=== PATIENT | male | born 1970 | race Caucasian/White ===

== ENCOUNTER 2016-03-17 17:42 | Emergency (ER) | payer OTHER ==
[2016-03-17 17:54] VITALS: BP 132/88; PULSE 74; RESP 18; TEMP 98; O2SAT 96
--- NOTE | 2016-03-17 18:14 | UCPHY ---
H & P Time Seen by Provider: 03/17/16 18:10 Patient Type: New HPI/ROS: HPI: 45-year-old gentleman presents to urgent care with chief concern bilateral knee pain and right thumb pain after an accident skiing today when he fell backwards and his ski stay planted, resulting in knee strain and ultimately knee pain. Also reports pain of the right thumb. Did not strike his head or incur other injury at time of incident. No neck or back pain. No right shoulder, right elbow, right wrist, or other right hand pain. No hip, leg , ankle, or foot pain. Has used ibuprofen with minimal improvement. Difficulty weight-bearing due to pain. ROS:10 point review of systems is negative other than as stated in HPI Smoking Status: Never smoked Physical Exam: Vital signs stable, reviewed by me General: Awake, alert, calm, cooperative. No acute distress. Head: Normalocephalic. Atraumatic. EENT: PERRLA. EOMI. Neck: Supple, nontender. No midline tenderness, full ROM. Respiratory: Breathing unlabored. CV: Chest nontender, atraumatic. Distal pulses 2+. Brisk cap refill all extremities. GI: Deferred Neuro: Alert. Oriented x 3. Sensation intact all extremities. Skin: Skin warm, dry, intact. No ecchymosis, abrasions, or lacerations. Extremities: No discomfort to palpation of the right shoulder, elbow, wrist. Full ROM. Pain to the lateral aspect of the right thumb. Full range of motion with discomfort. Opposition is intact. Bilateral knees:No deformity, ecchymosis, swelling, erythema, abrasions or lacerations noted. There is discomfort to palpation of the inferolateral aspect of the knees bilaterally . Full extension and flexion. Negative valgus and varus stress. Negative Flores. Negative AP drawer. Negative ballotment. Constitutional: Initial Vital Signs Temperature (C) 36.6 C 03/17/16 17:52 Heart Rate 74 03/17/16 17:52 Respiratory Rate 18 03/17/16 17:52 Blood Pressure 132/88 H 03/17/16 17:52 O2 Sat (%) 96 03/17/16 17:52 O2 Delivery Mode Room Air Allergies/Adverse Reactions: No Known Allergies Allergy (Unverified 03/17/16 17:51) Home Medications: Medication Instructions Recorded Antibotics 03/17/16 Hydrocodone/Acetaminophen [[place] 1 - 2 tab PO Q6H PRN #16 tab 03/17/16 5/325 (*)] Ibuprofen 600 mg PO Q6 PRN #28 tablet 03/17/16 Prednisone 03/17/16 Medical Decision Making - Diagnostics Imaging: Left Knee, 4 Views, at 6:23 PM. Clinical History: 45-year-old male involved in a skiing accident today with both knees twisting in opposite ways, left hurting more than right. COMPARISON STUDY: Radiographs of the right knee today, previously reported. FINDINGS: Bone mineralization is preserved. There is no fracture, dislocation, loose osteochondral body, or suprapatellar joint effusion. There is a tiny posterior inferior patellar degenerative spur. There is minor pinnacling of the medial tibial spine. IMPRESSION: There is no acute osseous abnormality identified. Should there be further concern regarding the patient's knee pain, MR imaging could be considered. Dictated By: Ravin Lal MD Right knee, 4 views. HISTORY: Trauma. Pain. FINDINGS: No fracture. Normal alignment. Joint spaces are maintained. There is a small knee joint effusion. IMPRESSION: Small right knee joint effusion, otherwise negative. Dictated By: Tim Olson MD Right Thumb, 3 Views, at 6:15 PM CLINICAL HISTORY: 45-year-old male who fell onto his right hand today while skiing, extending his thumb backwards. COMPARISON STUDY: None. FINDINGS: Bone mineralization is preserved. There is degenerative osteoarthritic change associated with the thumb metacarpal and interphalangeal joints with osseous hypertrophy. Tiny marginal erosions are seen in association with the base of the thumb proximal phalanx and the thumb metacarpal head. The thumb carpometacarpal joint is anatomically aligned. 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 Dictated By: Ravin Lal MD ED Course/Re-evaluation: 45-year-old gentleman presents to urgent care with bilateral knee pain, thumb pain. Patient is ambulating without difficulty on arrival to the urgent care. He is requesting bilateral knee x-rays. Has thumb pain however opposition is intact and he has full range of motion. Suspect radial collateral ligament strain. X-rays performed. Right knee x-ray shows small effusion. Left knee x-ray without effusion. No evidence of fracture dislocation. Some x-rays negative for evidence of acute fracture. Patient placed in a Velcro splint thumb spica for comfort-- neurovascular status intact after application. He is given follow up with Ortho. Differential Diagnosis: Differential diagnosis includes but is not limited to strain/sprain, fracture, dislocation, meniscal injury, ligament injury Departure - Departure Disposition: Home, Routine, Self-Care Clinical Impression: Bilateral knee pain Qualifiers: Chronicity: acute Qualifier Code: (M25.561) Pain in right knee Injury of thumb, right Qualifiers: Encounter type: initial encounter Qualifier Code: (S69.91XA) Unspecified injury of right wrist, hand and finger(s), initial encounter Knee injuries Qualifiers: Encounter type: initial encounter Laterality: unspecified laterality Qualifier Code: (S89.90XA) Unspecified injury of unspecified lower leg, initial encounter Condition: Good Instructions: Knee Pain (ED), Finger Sprain (ED) Additional Instructions: Plan: Follow up with [facility] orthopedist Wednesday or Wednesday regarding your thumb and knee injuries--When you call to schedule appointment, please let the office know you are an "ER follow up" appointment" You may use 600 mg of ibuprofen every 6 hours for fever, inflammation, or pain. Always take ibuprofen with food and stay well hydrated while taking. Do not exceed the maximum allowable dose in a 24 hour period which is 2400 mg. ice every 1-2 hours for 20 minutes for the the next 2-3 days 1 to 2 [place] every 6 hours as needed for severe pain-Never drink or drive while taking this medication. This medication impairs decision making capacity so do not work or sign important documents while taking. This medication its constipating so drink plenty of fluids and consider an [id number] stool softener such as docusate sodium (Colace) while taking this medication. This medication has addictive properties. You should use the least amount for the shortest amount of time. [facility] do not refill narcotic pain medication prescriptions. This is a hospital policy. You will need to follow up as indicated for recheck for further narcotic refills. Referrals: Toni Anderson DO [Primary Care Provider] - As per Instructions Prescriptions: Ibuprofen 600 mg PO Q6 PRN #28 tablet PRN Reason: inflammation/pain Hydrocodone/Acetaminophen [[place] 5/325 (*)] 1 - 2 tab PO Q6H PRN #16 tab PRN Reason: Pain, Moderate - PQRS PQRS Measurement: Not applicable
--- NOTE | 2016-03-17 18:31 | DX ---
Right knee, 4 views. HISTORY: Trauma. Pain. FINDINGS: No fracture. Normal alignment. Joint spaces are maintained. There is a small knee joint eff usion. IMPRESSION: Small right knee joint effusion, otherwise negative.
--- NOTE | 2016-03-17 18:36 | DX ---
Left Knee, 4 Views, at 6:23 PM. Clinical History: 45-year-old male involved in a skiing accident today with both knees twisting in op posite ways, left hurting more than right. COMPARISON STUDY: Radiographs of the right knee today, previously reported. FINDINGS: Bone mineralization is preserved. There is no fracture, dislocation, loose osteochondral cirilo dy, or suprapatellar joint effusion. There is a tiny posterior inferior patellar degenerative spur. T here is minor pinnacling of the medial tibial spine. IMPRESSION: There is no acute osseous abnormality identified. Should there be further concern regarding the patient's knee pain, MR imaging could be considered.
--- NOTE | 2016-03-17 18:38 | DX ---
Right Thumb, 3 Views, at 6:15 PM CLINICAL HISTORY: 45-year-old male who fell onto his right hand today while skiing, extending his cheyanne mb backwards. COMPARISON STUDY: None. FINDINGS: Bone mineralization is preserved. There is degenerative osteoarthritic change associated wi th the thumb metacarpal and interphalangeal joints with osseous hypertrophy. Tiny marginal erosions a re seen in association with the base of the thumb proximal phalanx and the thumb metacarpal head. The thumb carpometacarpal joint is anatomically aligned. IMPRESSION: Degenerative osteoarthritic features of the thumb MCP and IP joints, with no acute fractu re observed.
[2016-03-17] MEDS ORDERED: HYDROCOD/APAP 5/325 PREPACK#6 BTL TAKEHOME ONE (18:49)
== END 2016-03-17 19:00 | disposition home or self-care (01) ==
LOC: CED 17:42
DX: S69.91XA Unspecified injury of right wrist, hand and finger(s), initial encounter (principal); S89.92XA Unspecified injury of left lower leg, initial encounter; M25.561 Pain in right knee; V00.328A Other snow-ski accident, initial encounter; Y93.23 Activity, snow (alpine) (downhill) skiing, snowboarding, sledding, tobogganing and snow tubing
CPT/HCPCS: 73140-PO; 73564-PO; G0463-PO; L3807

== ENCOUNTER → 2016-05-26 | Outpatient (CLI) | payer OTHER | LOC: FIMAGING 10:16 | PROVIDERS: ATTEND Otolaryngology | DX: R05 Cough (principal) ==